=== PATIENT | female | born 1965 | race African-American/Black ===

== ENCOUNTER 2018-10-19 07:54 | Emergency (ER) | payer SELFPAY ==
[2018-10-19] MEDS ORDERED: Sodium Chloride 0.9% 1,000 ML IV ONE (08:30)
--- NOTE | 2018-10-19 10:23 | EDM.PDOC ---
ED HPI GENERAL MEDICAL PROBLEM - General Chief Complaint: Gastrointestinal Problem Stated Complaint: VOMITING AND BODY ACHES Time Seen by Provider: 10/19/18 08:18 Source of Information: Reports: Patient, RN Notes Reviewed History Limitations: Reports: No Limitations - History of Present Illness INITIAL COMMENTS - FREE TEXT/NARRATIVE: The patient states that she has had 4 days of nausea, vomiting, body aches, and dizziness while upright. She has had 2 days of a cough productive of yellowish and blood-tinged sputum. She had diarrhea 4 days ago and 3 days ago, but none since. No recent fever. No shortness of breath at rest, but she has had 2 days of dyspnea on exertion. No chest pain. No abdominal pain. No prior similar symptoms. The patient states that a coworker has cold-like symptoms. The patient states that she took Mucinex, without any relief. The patient's PCP is in [place], [place]. The patient did not receive an influenza vaccine this season. Generalized Pain Score (Numeric/FACES): 8 - Related Data Allergies Allergy/AdvReac Type Severity Reaction Status Date / Time aspirin Allergy Abdominal Verified 10/19/18 08:16 Pain Home Meds: Home Meds Ondansetron [Zofran ODT] 1 tab PO Q8H PRN #10 tab.dis 10/19/18 [Rx] Past Medical History Genitourinary History: Reports: Renal Calculus [employer] History: Reports: Endocrine/Metabolic History: Reports: Obesity/BMI 30+ - Infectious Disease History Infectious Disease History: Reports: Chicken Pox, Influenza - Past Surgical History Female Surgical History: Reports: Section (x 4), Tubal Ligation Musculoskeletal Surgical History: Reports: Carpal Tunnel (left only) Social & Family History - Tobacco Use Smoking Status *Q: Former Smoker Years of Tobacco use: 8 Packs/Tins Daily: 0.5 Month/Year Tobacco Last Used: Quit 2005 - Caffeine Use Caffeine Use: Reports: Coffee - Alcohol Use Alcohol Use History: Yes Alcohol Use Frequency: Socially - Recreational Drug Use Recreational Drug Use: No - Living Situation & Occupation Living situation: Reports: Single, with Significant Other (Fiance) Occupation: Employed ([employer]) ED ROS GENERAL - Review of Systems Review Of Systems: ROS reveals no pertinent complaints other than HPI. ED EXAM, GENERAL - Physical Exam Exam: See Below Exam Limited By: No Limitations General Appearance: Alert, WD/WN, No Apparent Distress Eye Exam: Bilateral Eye: EOMI, Normal Inspection Ears: Normal External Exam, Normal Canal, Hearing Grossly Normal, Normal TMs Nose: Normal Inspection, Normal Mucosa, No Blood Throat/Mouth: Normal Inspection, Normal Lips, Normal Teeth, Normal Gums, Normal Oropharynx, Normal Voice, No Airway Compromise Head: Atraumatic, Normocephalic Neck: Normal Inspection, Supple, Non-Tender, Full Range of Motion. No: Lymphadenopathy (L), Lymphadenopathy (R) Respiratory/Chest: No Respiratory Distress, Lungs Clear, Normal Breath Sounds, No Accessory Muscle Use. No: Crackles, Rhonchi, Wheezing Cardiovascular: Normal Peripheral Pulses, Regular Rate, Rhythm, No Edema, No Gallop, No JVD, No Murmur, No Rub Peripheral Pulses: 4+: Radial (L), Radial (R) GI/Abdominal: Normal Bowel Sounds, Soft, Non-Tender, No Organomegaly, No Distention, No Abnormal Bruit, No Mass (Female) Exam: Deferred Rectal (Female) Exam: Deferred Back Exam: Normal Inspection, Full Range of Motion, NT Extremities: Normal Inspection, Normal Range of Motion, No Pedal Edema, Normal Capillary Refill Neurological: Alert, Oriented, Normal Cognition, No Motor/Sensory Deficits Psychiatric: Normal Affect Skin Exam: Warm, Dry, Intact, Normal Color, No Rash Course - Vital Signs Last Recorded V/S: Last Vital Signs Temp 36.9 C 10/19/18 08:09 Pulse 95 10/19/18 08:09 Resp 12 10/19/18 08:09 BP 126/81 10/19/18 08:09 Pulse Ox 92 L 10/19/18 08:09 Orthostatic Blood Pressure [ 129/91 Standing] Orthostatic Blood Pressure [ 133/96 Sitting] Orthostatic Blood Pressure [ 137/88 Supine] - Orders/Labs/Meds Orders: Active Orders 24 hr Category Date Time Status Orthostatic Vital Signs [RC] STAT Care 10/19/18 08:30 Active Orthostatic Vital Signs [RC] STAT Care 10/19/18 08:31 Active CULTURE BLOOD [BC] Stat Lab 10/19/18 08:53 Received CULTURE BLOOD [BC] Stat Lab 10/19/18 09:00 Received Blood Culture x2 Reflex Set [OM.PC] Stat Oth 10/19/18 08:41 Ordered Labs: Laboratory Tests 10/19/18 10/19/18 Range/Units 08:53 08:53 WBC 4.68 (3.98-10.04) K/mm3 RBC 4.79 (3.98-5.22) M/mm3 Hgb 13.1 (11.2-15.7) gm/L Hct 40.9 (34.1-44.9) % MCV 85.4 (79.4-94.8) fl MCH 27.3 (25.6-32.2) pg MCHC 32.0 L (32.2-35.5) g/dl RDW Std Deviation 45.6 (36.4-46.3) fL Plt Count 270 (182-369) K/mm3 MPV 9.4 (9.4-12.3) fl Neutrophils % (Manual) 48 (40-60) % Band Neutrophils % 3 (0-10) % Lymphocytes % (Manual) 35 (20-40) % Atypical Lymphs % 0 % Monocytes % (Manual) 13 H (2-10) % Eosinophils % (Manual) 0 L (0.7-5.8) % Basophils % (Manual) 1 (0.1-1.2) Platelet Estimate Adequate RBC Morph Comment Normal Sodium 139 (136-145) mEq/L Potassium 4.1 (3.5-5.1) mEq/L Chloride 104 (98-107) mEq/L Carbon Dioxide 25 (21-32) mEq/L Anion Gap 14.1 (5-15) BUN 18 (7-18) mg/dL Creatinine 0.9 (0.55-1.02) mg/dL Est Cr Clr Drug Dosing 65.80 mL/min Estimated GFR (MDRD) > 60 (>60) mL/min BUN/Creatinine Ratio 20.0 H (14-18) Glucose 111 H (74-106) mg/dL Calcium 9.2 (8.5-10.1) mg/dL Magnesium 2.0 (1.8-2.4) mg/dl Total Bilirubin 0.2 (0.2-1.0) mg/dL AST 34 (15-37) U/L ALT 46 (14-59) U/L Alkaline Phosphatase 95 (46-116) U/L Total Protein 7.8 (6.4-8.2) g/dl Albumin 3.3 L (3.4-5.0) g/dl Globulin 4.5 gm/dL Albumin/Globulin Ratio 0.7 L (1-2) Meds: Medications Discontinued Medications Generic Name Dose Route Start Last Admin Trade Name Freq PRN Reason Stop Dose Admin Sodium Chloride 1,000 mls @ 999 mls/hr 10/19/18 08:30 10/19/18 08:56 Normal Saline IV 10/19/18 09:30 999 mls/hr ONETIME ONE Administration - Re-Assessments/Exams Free Text/Narrative Re-Assessment/Exam: 10/19/18 09:46 2-view chest radiograph reviewed. The cardiac silhouette is within normal limits. No pulmonary vascular congestion. No pleural effusions. There appear to be bilateral hazy infiltrates, and there is an approximately 2 cm oval to spherical opacity noted in the peripheral right midlung. No pneumothorax. Likely mild thoracic scoliosis. Formal read per the Radiologist pending. 10/19/18 10:27 Test results discussed with the patient. Her influenza A has returned positive, however, the patient has been symptomatic for up to 4 days, therefore Tamiflu would not likely be of much benefit. I offered to start the patient on Tamiflu, however, she declined. The patient was found to be orthostatic. I ordered 1 L NS, which has not yet infused. We will recheck orthostatics after it has. 10/19/18 13:17 Following 1 L NS, the patient is no longer orthostatic. 10/19/18 14:00 The patient will be discharged home with a referral to Dr. Bran, for follow-up chest x-ray. If the opacity is still present, she should receive an outpatient CT scan of the chest with IV contrast. The patient will be provided with a note for work. Departure - Departure Time of Disposition: 14:00 Disposition: Home, Self-Care 01 Condition: Fair Clinical Impression: Influenza A, Influenzal pneumonia, Pulmonary lesion, right, Orthostasis - Discharge Information *PRESCRIPTION DRUG MONITORING PROGRAM REVIEWED*: Not Applicable *COPY OF PRESCRIPTION DRUG MONITORING REPORT IN PATIENT DANIEL: Not Applicable Prescriptions: Ondansetron [Zofran ODT] 1 tab PO Q8H PRN #10 tab.dis PRN Reason: Nausea/Vomiting Instructions: Influenza, Adult, [id number] Referrals: Mayte Bran MD [Physician] - Forms: ED Department Discharge, ED Return to Work/School Form Additional Instructions: You were seen in the emergency room for vomiting, body aches, dizziness, and a cough. Workup in the ER included blood work, 2 sets of blood cultures, an influenza swab, positional blood pressure checks, and a chest x-ray. Your workup found that you are positive for Influenza A, and your chest x-ray showed that you have viral pneumonia, almost certainly due to influenza. Unfortunately, the time to treat influenza a has passed. This viral illness will have to run its course. Your blood pressure dropped excessively between lying and standing indicating that you were dry. You were given 1 L of IV fluid, and this corrected. Going forward, make sure that you stay adequately hydrated. Gatorade or Powerade are best. Your chest x-ray also found an opacity on the far right lung. This needs to be followed up on. We recommend that you follow-up with Dr. Mayte Bran in the clinic in a couple of weeks. She will likely recheck a chest x-ray, and if the opacity is still there, then she will need to order a CT scan of your chest with IV contrast. A prescription for anti-nausea medicine Zofran has been sent to the [facility], [address] [place] [address]. Dissolve 1 tablet on your tongue up to every 8 hours, as needed for nausea/vomiting. A note for work has been provided to you through Wednesday. If you need to be off work beyond then, please follow-up with Dr. Bran by Wednesday. If any other problems, please do not hesitate to return to the ER. - My Orders Last 24 Hours: My Active Orders 10/19/18 08:30 Orthostatic Vital Signs [RC] STAT 10/19/18 08:31 Orthostatic Vital Signs [RC] STAT 10/19/18 08:41 Blood Culture x2 Reflex Set [OM.PC] Stat 10/19/18 08:53 CULTURE BLOOD [BC] Stat 10/19/18 09:00 CULTURE BLOOD [BC] Stat - Assessment/Plan Last 24 Hours: My Active Orders 10/19/18 08:30 Orthostatic Vital Signs [RC] STAT 10/19/18 08:31 Orthostatic Vital Signs [RC] STAT 10/19/18 08:41 Blood Culture x2 Reflex Set [OM.PC] Stat 10/19/18 08:53 CULTURE BLOOD [BC] Stat 10/19/18 09:00 CULTURE BLOOD [BC] Stat
--- NOTE | 2018-10-19 11:00 | CR ---
Chest: Two views of the chest were obtained. Comparison: No prior chest x-ray. Heart size is normal. Mild tortuosity of the thoracic aorta is seen. Patchy increased density within the right upper and right lower lung are seen. Lungs otherwise are clear. Bony structures show diffuse disc space narrowing within the thoracic spine with mild scattered endplate osteophytes and mild scoliosis. Impression: 1. Patchy increased density within the upper right and right lower lobe most likely representing mild diffuse pneumonia. 2. Other incidental findings. Diagnostic code #3
== END 2018-10-19 14:19 | disposition home or self-care (01) ==
LOC: JD.ED 07:54
DX: J11.00 Influenza due to unidentified influenza virus with unspecified type of pneumonia (principal); Z87.891 Personal history of nicotine dependence; Z88.6 Allergy status to analgesic agent
CPT/HCPCS: 36415; 71046; 80053; 83735; 85007; 85027; 87040; 87804; 96360; 96361; 99284; J7040; 99283